=== PATIENT | male | born 2000 | race Two or more races ===

== ENCOUNTER 2022-07-23 12:01 | Emergency (ER) | payer OTHER ==
[~2022-07-23] VITALS: Ht 165.1 cm; Wt 75.0 kg
[2022-07-23 12:35] LABS: CLARITY URINE CLEAR (CLEAR); COLOR URINE YELLOW (YELLOW); KETONES URINE NEGATIVE (NEGATIVE); LEUKOCYTE ESTERASE URINE NEGATIVE (NEGATIVE); NITRITE URINE NEGATIVE (NEGATIVE); OCCULT BLOOD URINE NEGATIVE (NEGATIVE); PH URINE 8.5 (4.5-8.0); PROTEIN URINE NEGATIVE (NEGATIVE); SPECIFIC GRAVITY URINE 1.021 (1.005-1.030)
[2022-07-23 13:09] LABS: HEMATOCRIT. 47.4 % (42.0-52.0); HEMOGLOBIN. 16.7 g/dL (14.0-18.0); MEAN CORPUSCULAR HEMOGLOBIN 29.7 pg (28.0-32.0); PLATELET 205 x1000/uL (130-400); RED BLOOD CELL COUNT 5.64 mill/uL (4.7-6.1); RED CELL DISTRIBUTION WIDTH 12.9 % (11.6-14.6)
[2022-07-23 13:14] LABS: CHLORIDE 106 mEq/L (98-107)
[2022-07-23 13:44] LABS: PLATELET ESTIMATE NORMAL
[2022-07-23] MEDS ORDERED: KETOROLAC 15MG/ML VIAL IV ONE (17:15)
[2022-07-23] MEDS ORDERED: IBUP-2029 MT (17:50)
[2022-07-23 18:16] VITALS: BP 110/60
== END 2022-07-23 18:18 | disposition home or self-care (01) ==
LOC: ER 12:17
DX: R10.31 Right lower quadrant pain (principal)
CPT/HCPCS: 36415; 74176; 80053; 81003; 83690; 85025; 96374; 99285; J1885